=== PATIENT | male | born 1975 | race Caucasian/White ===

== ENCOUNTER 2018-09-27 20:52 | Inpatient (IN) | payer SELFPAY ==
[~2018-09-27] VITALS: Ht 165.1 cm; Wt 68.0 kg
[2018-09-27] MEDS ORDERED: SODIUM CHLORIDE 0.9% 1,000 ML IV ONE (22:38)
[2018-09-28 00:32] LABS: CHLORIDE 109 mEq/L (98-107)
[2018-09-28 00:37] LABS: BASOPHILS % 1.2 % (0.0-2.0); EOSINOPHILS % 0.2 % (0.0-5.0); HEMATOCRIT. 32.2 % (42.0-52.0); HEMOGLOBIN. 10.6 g/dL (14.0-18.0); LYMPHOCYTES % 28.1 % (20.0-50.0); MEAN CORPUSCULAR HEMOGLOBIN 28.4 pg (28.0-32.0); MEAN CORPUSCULAR VOLUME 86.1 fL (80.0-94.0); MEAN PLATELET VOLUME 8.4 fl (7.4-10.4); MONOCYTES % 9.5 % (2.0-8.0); RED BLOOD CELL COUNT 3.74 mill/uL (4.7-6.1); RED CELL DISTRIBUTION WIDTH 27.1 % (11.6-14.6)
[2018-09-28 00:43] LABS: PLATELET 46 x1000/uL (130-400)
[2018-09-28 00:56] LABS: ETHANOL BLOOD 443 mg/dL
[2018-09-28 01:53] LABS: INR 1.1; PROTHROMBIN TIME 11.5 sec (9.6-11.0)
[2018-09-28 01:57] LABS: PLATELET ESTIMATE MARKEDLY DECREASED
[2018-09-28 05:10] VITALS: BP 122/77
[2018-09-28 05:16] VITALS: BP 122/77
[2018-09-28] MEDS ORDERED: PNEUMOCOCCAL 23-VAL P-SAC VAC 0.5 ML IM ONE (06:00)
[2018-09-28] MEDS ORDERED: ONDANSETRON HCL 4MG/2ML INJ IV PRN (07:00)
[2018-09-28] MEDS ORDERED: DIPHENHYDRAMINE 50MG/ML VIAL IV PRN (07:00)
[2018-09-28] MEDS ORDERED: HYDRALAZINE 20MG/ML VIAL IV PRN (07:00)
[2018-09-28] MEDS ORDERED: HYDROCODONE/ACETAMINOPHEN 10/325MG TABLET PO PRN (07:00)
[2018-09-28] MEDS ORDERED: GUAIFENESIN 200MG/10ML SUGAR FREE UDC PO PRN (07:00)
[2018-09-28] MEDS ORDERED: NA PHOS,M-B/NA PHOS,DI-BA ENEMA 118ML PR PRN (07:00)
[2018-09-28] MEDS ORDERED: MVI, ADULT NO.1 10 ML, FOLIC ACID 1 MG, THIAMINE HCL 100 MG in SODIUM CHLORIDE 0.9% 1,0... IV SCH ×4 (07:00)
[2018-09-28] MEDS ORDERED: HYDROMORPHONE HCL/PF 2MG/ML CPJ IV PRN (07:00)
[2018-09-28] MEDS ORDERED: MAGNESIUM/ALUMINUM HYDROXIDE/SIMETHICONE 30ML UDC PO PRN (07:00)
[2018-09-28] MEDS ORDERED: IPRATROPIUM/ALBUTEROL 0.5-3(2.5)MG/3ML NEB INH PRN (07:00)
[2018-09-28] MEDS ORDERED: ACETAMINOPHEN 325MG TABLET PO PRN (07:00)
[2018-09-28] MEDS ORDERED: CLONIDINE 0.1MG TABLET PO PRN (07:00)
[2018-09-28 08:00] VITALS: BP 109/65
[2018-09-28] MEDS ORDERED: DOCUSATE SODIUM 100MG CAPSULE PO PRN (09:00)
[2018-09-28 12:00] VITALS: BP 112/73
[2018-09-28] MEDS: LORAZEPAM 2MG/ML CPJ IV PRN (14:57)
[2018-09-28] MEDS: SODIUM CHLORIDE 0.9% INJ 3ML FLUSH IVF SCH ×2 (15:12→21:54)
[2018-09-28 16:00] VITALS: BP 125/74
[2018-09-28 17:27] LABS: CREATINE KINASE 188 IU/L (39-308)
[2018-09-28 17:28] LABS: CREATINE KINASE MB FRACTION < 1.0 ng/mL (0.5-3.6)
[2018-09-28 20:00] VITALS: BP 141/69
[2018-09-28] MEDS ORDERED: POTASSIUM CHLORIDE 20MEQ TABLET SR PO NR (20:15)
[2018-09-29] VITALS (7 sets, daily range): BP systolic 112–138; BP diastolic 70–87
[2018-09-29 01:30] LABS: CREATINE KINASE 200 IU/L (39-308)
[2018-09-29 01:31] LABS: CREATINE KINASE MB FRACTION < 1.0 ng/mL (0.5-3.6)
[2018-09-29] MEDS: SODIUM CHLORIDE 0.9% INJ 3ML FLUSH IVF SCH ×3 (05:30→20:52)
[2018-09-29 06:45] LABS: EOSINOPHILS % 0.5 % (0.0-5.0); HEMATOCRIT. 31.2 % (42.0-52.0); HEMOGLOBIN. 10.3 g/dL (14.0-18.0); LYMPHOCYTES % 32.2 % (20.0-50.0); MEAN CORPUSCULAR HEMOGLOBIN 28.8 pg (28.0-32.0); MEAN PLATELET VOLUME 8.5 fl (7.4-10.4); MONOCYTES % 10.7 % (2.0-8.0); NEUTROPHILS % 55.6 % (40.0-76.0); RED BLOOD CELL COUNT 3.59 mill/uL (4.7-6.1); RED CELL DISTRIBUTION WIDTH 26.8 % (11.6-14.6)
[2018-09-29 07:00] LABS: CHLORIDE 101 mEq/L (98-107)
[2018-09-29 07:39] LABS: PLATELET 31 x1000/uL (130-400)
[2018-09-29] MEDS: LORAZEPAM 2MG/ML CPJ IV PRN (10:16)
[2018-09-29] MEDS ORDERED: FOLIC ACID 1 MG, THIAMINE HCL 100 MG, MVI, ADULT NO.1 10 ML in SODIUM CHLORIDE 0.9% 1,0... IV ONE ×4 (14:00)
[2018-09-29] MEDS: BACITRACIN 15GM TUBE TOP SCH (21:07)
[2018-09-30 04:48] VITALS: BP 147/90
[2018-09-30] MEDS: SODIUM CHLORIDE 0.9% INJ 3ML FLUSH IVF SCH (05:12)
[2018-09-30 06:32] VITALS: BP 118/78
[2018-09-30] MEDS: BACITRACIN 15GM TUBE TOP SCH (08:53)
[2018-09-30 09:13] VITALS: BP 120/76
== END 2018-09-30 12:50 | disposition home or self-care (01) | DRG 422 ==
LOC: ER 20:52 → 8WST 09-28 01:06 → EDBEDREQ 09-28 01:11 → EDBEDREQTM 09-28 01:11 → ENRESERV 09-28 04:26
PROVIDERS: ADMIT Internal Medicine; ATTEND Internal Medicine
DX: E86.0 Dehydration (principal); D69.6 Thrombocytopenia, unspecified; E87.2 Acidosis; D64.9 Anemia, unspecified; F10.129 Alcohol abuse with intoxication, unspecified; E87.6 Hypokalemia; I10 Essential (primary) hypertension; K74.60 Unspecified cirrhosis of liver; W18.30XA Fall on same level, unspecified, initial encounter; Y93.89 Activity, other specified; Y92.89 Other specified places as the place of occurrence of the external cause; Y99.8 Other external cause status
CPT/HCPCS: 36415; 70486; 80320; 82550; 82553; 82962; 84484; 90732; 96361; 96365; 96375; 99285; J1200; J2060; J3411; J3490; J7030; G0480